=== PATIENT | female | born 1995 ===

== ENCOUNTER 2019-08-02 17:22 | Observation (INO) | payer OTHER | END 2019-08-02 19:05 | disposition home or self-care (01) | LOC: MW.OB 17:22 | PROVIDERS: ADMIT Obstetrics & Gynecology; ATTEND Obstetrics & Gynecology | DX: O99.89 Other specified diseases and conditions complicating pregnancy, childbirth and the puerperium (principal); R10.30 Lower abdominal pain, unspecified; R10.2 Pelvic and perineal pain; M54.9 Dorsalgia, unspecified; Z3A.31 31 weeks gestation of pregnancy | CPT/HCPCS: 59025 ==